=== PATIENT | female | born 2000 | race Caucasian/White ===

== ENCOUNTER 2020-11-04 21:56 | Emergency (ER) | payer OTHER ==
[~2020-11-04] VITALS: Ht 165.1 cm; Wt 77.1 kg
[2020-11-04 22:00] VITALS: BP 125/86
[2020-11-04 22:31] VITALS: BP 125/86
== END 2020-11-04 22:32 | disposition home or self-care (01) ==
LOC: MED 21:56
DX: H92.01 Otalgia, right ear (principal); Z88.0 Allergy status to penicillin
CPT/HCPCS: 99281

== ENCOUNTER 2021-02-12 19:50 | Emergency (ER) | payer OTHER ==
[~2021-02-12] VITALS: Ht 162.6 cm; Wt 76.7 kg
[2021-02-12 20:15] VITALS: BP 117/56
--- NOTE | 2021-02-12 20:18 | NUR ---
TO LOBBY A/W BED AMBULATORY
[2021-02-12 21:20] LABS: BASOPHILS # (AUTO) 0.1 K/uL (0.00-0.22); BASOPHILS % (AUTO) 0.9 % (0.0-2.0); EOSINOPHILS # (AUTO) 0.3 K/uL (0-0.4); EOSINOPHILS % (AUTO) 2.5 % (0.0-4.0); HEMATOCRIT 40.9 % (36-48); HEMOGLOBIN 12.9 g/dL (12.0-16.0); LYMPHOCYTES # (AUTO) 2.6 K/uL (2.5-16.5); LYMPHOCYTES % (AUTO) 23.1 % (20.5-51.1); MEAN CORPUSCULAR HEMOGLOBIN 24 pg (27-31); MEAN CORPUSCULAR HGB CONC 32 g/dL (33-37); MEAN CORPUSCULAR VOLUME 76.6 fL (80-94); MONOCYTES # (AUTO) 0.9 K/uL (0.8-1.0); MONOCYTES % (AUTO) 8.1 % (1.7-9.3); NEUTROPHILS # (AUTO) 7.3 K/uL (1.8-7.7); NEUTROPHILS % (AUTO) 65.4 % (42.2-75.2); PLATELET COUNT (AUTO) 167 K/uL (140-450); RED BLOOD CELL COUNT(AUTO) 5.34 MIL/uL (4.20-5.40); RED CELL DISTRIBUTION WIDTH 16.8 % (11.6-13.7); WHITE BLOOD COUNT (AUTO) 11.2 K/uL (4.8-10.8)
[2021-02-12 21:38] LABS: CARBON DIOXIDE 28.3 mmol/L (21-32); CREATININE 0.7 mg/dL (0.6-1.3); POTASSIUM 4.3 mmol/L (3.5-5.1)
--- NOTE | 2021-02-12 22:07 | NUR ---
ERMD at bedside for examination of patient
[2021-02-12] MEDS ORDERED: IBUP-2213 PO (22:27)
[2021-02-12 22:35] VITALS: BP 118/54
== END 2021-02-12 22:33 | disposition home or self-care (01) ==
LOC: MED 19:50
DX: R07.9 Chest pain, unspecified (principal); R06.02 Shortness of breath
CPT/HCPCS: 36415; 71045; 80048; 83880; 84484; 85025; 93005; 99285

== ENCOUNTER 2021-03-25 19:14 | Emergency (ER) | payer OTHER ==
[~2021-03-25] VITALS: Ht 162.6 cm; Wt 73.9 kg
[~2021-03-25 19:14] MED LIST: IBUP-2213 PO
[2021-03-25 19:26] VITALS: BP 133/79
[2021-03-25] MEDS ORDERED: IBUPROFEN 600 MG TAB PO ONE (19:40)
[2021-03-25] MEDS ORDERED: ACET-8386 PO (20:52)
--- NOTE | 2021-03-25 21:00 | NUR ---
SEE COMPLETE ASSESSMENT FOR FURTHER INFORMATION
[2021-03-25] MEDS ORDERED: IBUPROFEN 600 MG TAB ONE (21:03)
== END 2021-03-25 21:10 | disposition home or self-care (01) ==
LOC: MED 19:14
DX: S92.514A Nondisplaced fracture of proximal phalanx of right lesser toe(s), initial encounter for closed fracture (principal); Z79.1 Long term (current) use of non-steroidal anti-inflammatories (NSAID); Z88.0 Allergy status to penicillin; W22.8XXA Striking against or struck by other objects, initial encounter; Y92.89 Other specified places as the place of occurrence of the external cause; Y93.89 Activity, other specified; Y99.8 Other external cause status
CPT/HCPCS: 73660; 99283

== ENCOUNTER 2022-04-27 18:54 | Emergency (ER) | payer OTHER ==
[~2022-04-27] VITALS: Ht 162.6 cm; Wt 81.6 kg
[~2022-04-27 18:54] MED LIST changes: +ACET-8386 PO
[2022-04-27 19:40] VITALS: BP 136/80
--- NOTE | 2022-04-27 19:43 | NUR ---
TO LOBBY A/W BED AMBULATORY
[2022-04-27 20:10] LABS: APPEARANCE,URINE SL CLOUDY (CLEAR); BILIRUBIN,URINE NEGATIVE (NEGATIVE); BLOOD, URINE NEGATIVE (NEGATIVE); COLOR,URINE YELLOW (YELLOW); LEUKOCYTE ESTERASE ,URINE 1+ (NEGATIVE); NITRITE, URINE NEGATIVE (NEGATIVE); PH,URINE 7.5 (5.0-9.0); UGLUCOSE NEGATIVE (NEGATIVE)
[2022-04-27 21:14] LABS: BASOPHILS % (AUTO) 0.4 % (0.0-2.0); EOSINOPHILS # (AUTO) 0.2 K/uL (0-0.4); EOSINOPHILS % (AUTO) 2.7 % (0.0-4.0); HEMATOCRIT 40.8 % (36-48); HEMOGLOBIN 13.1 g/dL (12.0-16.0); LYMPHOCYTES # (AUTO) 2.6 K/uL (2.5-16.5); LYMPHOCYTES % (AUTO) 28.3 % (20.5-51.1); MEAN CORPUSCULAR HEMOGLOBIN 25 pg (27-31); MEAN CORPUSCULAR HGB CONC 32 g/dL (33-37); MEAN CORPUSCULAR VOLUME 79.1 fL (80-94); MONOCYTES # (AUTO) 0.8 K/uL (0.8-1.0); MONOCYTES % (AUTO) 8.4 % (1.7-9.3); NEUTROPHILS # (AUTO) 5.5 K/uL (1.8-7.7); NEUTROPHILS % (AUTO) 60.2 % (42.2-75.2); PLATELET COUNT (AUTO) 166 K/uL (140-450); RED BLOOD CELL COUNT(AUTO) 5.16 MIL/uL (4.20-5.40); RED CELL DISTRIBUTION WIDTH 15.2 % (11.6-13.7); WHITE BLOOD COUNT (AUTO) 9.1 K/uL (4.8-10.8)
--- NOTE | 2022-04-27 21:25 | NUR ---
Dr. Pearl examining patient.
[2022-04-27 21:30] LABS: RBC,URINE NONE SEEN /HPF (0-5); WBC,URINE 0-5 /HPF (0-5)
[2022-04-27 21:31] LABS: ALBUMIN 3.8 g/dL (3.4-5.0); ANION GAP 10.1 (8-16); CARBON DIOXIDE 29.3 mmol/L (21-32); CREATININE 0.7 mg/dL (0.6-1.3); POTASSIUM 4.4 mmol/L (3.5-5.1); TOTAL BILIRUBIN 0.1 mg/dL (0.0-1.0)
[2022-04-27] MEDS ORDERED: FAMO-90 PO (22:06)
[2022-04-27] MEDS ORDERED: NITR100C7 PO (22:06)
[2022-04-27] MEDS ORDERED: BISM262C10 PO (22:06)
--- NOTE | 2022-04-27 23:38 | NUR ---
Note nadeen in EDM - 04/27/22 at 2341 by SIERRA Patient discharged with v/s stable. Written and verbal after care instructions given and explained. Patient alert, oriented and verbalized understanding of instructions. Ambulatory with steady gait. All questions addressed prior to discharge. ID band removed. Patient advised to follow up with PMD. Rx of BISMATROL, PEPCID, MACROBID given. Patient educated on indication of medication including possible reaction and side effects. Opportunity to ask questions provided and answered.
--- NOTE | 2022-04-27 23:38 | NUR ---
PATIENT SEEN AND ASSESSED BY JULIO CESAR HUMPHREY. Written and verbal after care instructions given and explained. Patient alert, oriented and verbalized understanding of instructions. Ambulatory with steady gait. All questions addressed prior to discharge. ID band removed. Patient advised to follow up with PMD. Rx of BISMATROL, PEPCID, MACROBID given. Patient educated on indication of medication including possible reaction and side effects. Opportunity to ask questions provided and answered.
== END 2022-04-27 23:38 | disposition home or self-care (01) ==
LOC: MED 18:54
DX: A08.4 Viral intestinal infection, unspecified (principal); N39.0 Urinary tract infection, site not specified
CPT/HCPCS: 36415; 76856; 80053; 81001; 81025; 83690; 85025; 87086; 93976; 99284; Q0092

== ENCOUNTER 2022-08-16 15:44 | Emergency (ER) | payer OTHER ==
[~2022-08-16] VITALS: Ht 162.6 cm; Wt 82.6 kg
[~2022-08-16 15:44] MED LIST changes: -ACET-8386 PO; +ACET-8905 PO; +BISM262C10 PO; +FAMO-90 PO; +NITR100C7 PO
[2022-08-16 16:05] VITALS: BP 122/84
--- NOTE | 2022-08-16 16:11 | NUR ---
pt to lobby
[2022-08-16] MEDS ORDERED: METOCLOPRAMIDE 10 MG TAB PO ONE (16:30)
[2022-08-16] MEDS ORDERED: ALUMINUM HYD/MAG/SIMETHICONE 30 ML UDC PO ONE (16:30)
--- NOTE | 2022-08-16 16:59 | NUR ---
pt in bed 2, nad, medicated as ordered, sr up times 2
[2022-08-16] MEDS ORDERED: ALUM355S59 PO (17:18)
[2022-08-16] MEDS ORDERED: METO-486 PO (17:18)
[2022-08-16 17:29] VITALS: BP 122/84
--- NOTE | 2022-08-16 17:29 | NUR ---
Patient discharged with v/s stable. Written and verbal after care instructions given and explained. Patient alert, oriented and verbalized understanding of instructions. Ambulatory with steady gait. All questions addressed prior to discharge. ID band removed. Patient advised to follow up with PMD. Rx of REGLAN, MAALOX (SENT) given. Patient educated on indication of medication including possible reaction and side effects. Opportunity to ask questions provided and answered.
== END 2022-08-16 17:29 | disposition home or self-care (01) ==
LOC: MED 15:44
DX: R10.33 Periumbilical pain (principal); R10.12 Left upper quadrant pain; R10.32 Left lower quadrant pain; R11.0 Nausea; Z90.49 Acquired absence of other specified parts of digestive tract; Z79.899 Other long term (current) drug therapy; Z79.891 Long term (current) use of opiate analgesic; Z79.2 Long term (current) use of antibiotics; Z79.1 Long term (current) use of non-steroidal anti-inflammatories (NSAID); Z88.0 Allergy status to penicillin
CPT/HCPCS: 81025; 99283; J8597

== ENCOUNTER 2022-11-12 12:46 | Emergency (ER) | payer OTHER ==
[~2022-11-12] VITALS: Ht 165.1 cm; Wt 79.4 kg
[~2022-11-12 12:46] MED LIST changes: +ALUM355S59 PO; +METO-486 PO
[2022-11-12 12:51] VITALS: BP 124/78; PULSE 82; RESP 16; TEMP 97.9; O2SAT 97
--- NOTE | 2022-11-12 12:55 | NUR ---
PT AMBULATORY TO BED 09
[2022-11-12 13:24] LABS: APPEARANCE,URINE CLEAR (CLEAR); BILIRUBIN,URINE NEGATIVE (NEGATIVE); BLOOD, URINE NEGATIVE (NEGATIVE); COLOR,URINE YELLOW (YELLOW); LEUKOCYTE ESTERASE ,URINE NEGATIVE (NEGATIVE); NITRITE, URINE NEGATIVE (NEGATIVE); UGLUCOSE NEGATIVE (NEGATIVE)
[2022-11-12] MEDS ORDERED: IBUP-2213 PO (14:13)
[2022-11-12 14:22] VITALS: BP 128/69; PULSE 72; RESP 16; TEMP 98.1; O2SAT 98
--- NOTE | 2022-11-12 14:22 | NUR ---
Patient discharged with v/s stable. Patient continues to c/o pain at an 8 intensity, with no nausea or vomiting, smiling, no grimicing or abd guarding. Written and verbal after care instructions given and explained. ISMAEL Guthrie provided patient with verbal dishcarge instructions and copy of US. Patient verbalized understanding. Ambulatory with steady gait. All questions addressed prior to discharge. Advised to follow up with PMD/LIBR[facility] SERVICES COORDINATOR.
== END 2022-11-12 14:22 | disposition home or self-care (01) ==
LOC: MED 12:46
DX: R10.2 Pelvic and perineal pain (principal); M54.50 Low back pain, unspecified; Z88.0 Allergy status to penicillin; Z79.899 Other long term (current) drug therapy; Z90.49 Acquired absence of other specified parts of digestive tract
CPT/HCPCS: 76856; 81003; 81025; 93976; 99284; Q0092

== ENCOUNTER 2023-03-19 03:55 | Emergency (ER) | payer OTHER ==
[~2023-03-19] VITALS: Ht 162.6 cm; Wt 7.7 kg
[2023-03-19 04:08] VITALS: BP 106/71; PULSE 80; RESP 16; TEMP 97; O2SAT 99
[2023-03-19 04:41] LABS: APPEARANCE,URINE CLEAR (CLEAR); BILIRUBIN,URINE NEGATIVE (NEGATIVE); BLOOD, URINE 3+ (NEGATIVE); COLOR,URINE YELLOW (YELLOW); LEUKOCYTE ESTERASE ,URINE 1+ (NEGATIVE); NITRITE, URINE NEGATIVE (NEGATIVE); PH,URINE 6.5 (5.0-9.0); PROTEIN,URINE 1+ (NEGATIVE); UGLUCOSE NEGATIVE (NEGATIVE); UROBILINOGEN,URINE 0.2 EU/dL (0.2 - 1)
[2023-03-19 04:43] LABS: BACTERIA,URINE >30 (MANY) /HPF (None Seen); MUCUS,URINE 1+ /LPF (None Seen); RBC,URINE TOO NUMEROUS TO COUN /HPF (0-5); SQUAMOUS EPITHELIAL CELL,UR 4-10 (MOD) /LPF (0-3 (FEW)); WBC,URINE TOO MANY TO COUNT /HPF (0-5)
[2023-03-19] MEDS ORDERED: SULFAMETH/TRIMETH DS 800/160MG 1 TAB PO ONE (05:05)
[2023-03-19] MEDS ORDERED: PYR100 PO (05:09)
[2023-03-19] MEDS ORDERED: SULF-59 PO (05:09)
[2023-03-19] MEDS ORDERED: IBUP-2218 PO (05:10)
[2023-03-19 05:32] VITALS: BP 106/71; PULSE 80; RESP 16; TEMP 97; O2SAT 99
[2023-03-21] MEDS ORDERED: NITR100C7 PO (11:42)
== END 2023-03-19 05:32 | disposition home or self-care (01) ==
LOC: MED 03:55
DX: N39.0 Urinary tract infection, site not specified (principal); N12 Tubulo-interstitial nephritis, not specified as acute or chronic; Z90.49 Acquired absence of other specified parts of digestive tract; Z79.899 Other long term (current) drug therapy; Z79.1 Long term (current) use of non-steroidal anti-inflammatories (NSAID); Z79.2 Long term (current) use of antibiotics; Z88.0 Allergy status to penicillin
CPT/HCPCS: 81001; 81025; 87086; 99283

== ENCOUNTER 2023-11-26 17:51 | Emergency (ER) | payer OTHER ==
[~2023-11-26] VITALS: Ht 162.6 cm; Wt 74.1 kg
[~2023-11-26 17:51] MED LIST changes: +IBUP-2218 PO; +PYR100 PO; +SULF-59 PO
[2023-11-26 18:00] VITALS: BP 119/78; PULSE 84; RESP 18; TEMP 97.7; O2SAT 100
[2023-11-26 18:15] VITALS: O2SAT 100
== END 2023-11-26 18:55 | disposition home or self-care (01) ==
LOC: MED 17:51
DX: R07.89 Other chest pain (principal); R22.2 Localized swelling, mass and lump, trunk; Z90.49 Acquired absence of other specified parts of digestive tract; Z79.1 Long term (current) use of non-steroidal anti-inflammatories (NSAID); Z79.899 Other long term (current) drug therapy; Z88.0 Allergy status to penicillin
CPT/HCPCS: 93005; 99283